=== PATIENT | male | born 1995 | race Caucasian/White ===

== ENCOUNTER 2020-02-28 15:46 | Emergency (ER) | payer OTHER ==
[~2020-02-28] VITALS: Ht 167.6 cm; Wt 53.8 kg
[2020-02-28 16:21] LABS: BASOPHILS # (AUTO) 0.01 x10^3/uL (0-0.1); BASOPHILS % (AUTO) 0 % (0-1); EOSINOPHILS # (AUTO) 0.03 x10^3/uL (0-0.4); EOSINOPHILS % (AUTO) 1 % (1-7); LYMPHOCYTES # (AUTO) 2.09 x10^3/uL (1-3.4); LYMPHOCYTES % (AUTO) 34 % (22-44); MD NO; MEAN CORPUSCULAR HEMOGLOBIN 31.5 pg (27.5-34.5); MEAN CORPUSCULAR HGB CONC 33.3 g/dL (33.2-36.2); MEAN CORPUSCULAR VOLUME 94.4 fL (81-97); MEAN PLATELET VOLUME 8.8 fL (7.4-10.4); MONOCYTES # (AUTO) 0.39 x10^3/uL (0.2-0.8); MONOCYTES % (AUTO) 6 % (2-9); NEUTROPHILS # (AUTO) 3.59 x10^3/uL (1.8-6.8); NEUTROPHILS % (AUTO) 59 % (42-75); PLATELET COUNT 317 x10^3/uL (130-400); RED BLOOD COUNT 5.16 x10^6/uL (4.38-5.82); RED CELL DISTRIBUTION WIDTH 13.1 % (9.4-14.8)
--- NOTE | 2020-02-28 16:24 | NUR ---
PT BELONGINGS SECURED IN LOCKER AND ROOM EQUIPMENT BEHIND PULL DOWN DOORS. PT IN DIRECT VIEW OF SITTER.
[2020-02-28 16:28] LABS: ALBUMIN 4.6 g/dL (3.4-5.0); ANION GAP 9 mmol/L (5-15); CALCIUM 9.2 mg/dL (8.5-10.1); CHLORIDE 112 mmol/L (98-107); CREATININE 0.75 mg/dL (0.7-1.3)
[2020-02-28 16:34] LABS: SALICYLATE LEVEL < 1.7 mg/dL (2.8-20.0)
[2020-02-28 16:44] LABS: AMPHETAMINE SCREEN, URINE Negative (Negative); BARBITURATE SCREEN, URINE Negative (Negative); BENZODIAZEPINE SCREEN, URINE Negative (Negative); CANNABINOID SCREEN, URINE Negative (Negative); COCAINE SCREEN, URINE Positive (Negative); METHADONE SCREEN, URINE Negative (Negative); OPIATE SCREEN, URINE Negative (Negative)
--- NOTE | 2020-02-28 18:22 | NUR ---
pt [facility] cab[facility]as [phone]
--- NOTE | 2020-02-28 18:55 | NUR ---
REPORT TO ANGEL CUMMINGS
[2020-02-28] MEDS ORDERED: ACETAMINOPHEN 500 MG TABLET ONE (22:34)
[2020-02-28 22:39] VITALS: BP 133/91
[2020-02-28] MEDS ORDERED: ACETAMINOPHEN 325 MG TABLET PO ONE (23:00)
== END 2020-02-28 22:49 | disposition home or self-care (01) ==
LOC: ED 21:06
DX: R45.851 Suicidal ideations (principal); F10.120 Alcohol abuse with intoxication, uncomplicated; F32.9 Major depressive disorder, single episode, unspecified; F14.10 Cocaine abuse, uncomplicated; Y90.9 Presence of alcohol in blood, level not specified
CPT/HCPCS: 36415; 80048; 80307; 82040; 85025; 99284